=== PATIENT | male | born 1975 | race Caucasian/White ===

== ENCOUNTER 2019-09-02 23:57 | Emergency (ER) | payer BC, OTHER ==
--- OUTSIDE RECORDS SUMMARY | 2019-09-03 00:07 | XMS REPORT | Continuity of Care Document ---
Author Organization Unknown Address Unknown Phone Unavailable Allergies There is no data. Medications There is no data. Problems There is no data. Procedures There is no data. Results There is no data. Encounters ACCT No. Visit Date/Time Discharge Status Pt. Type Provider Facility Loc./Unit Complaint [id number] 09/03/2019 00:02:[address] Emergency RADHA CARTAGENA DO [facility] ER F O IN LEFT EYE
[2019-09-03] MEDS ORDERED: BSS 15 ML IR ONE (00:15)
[2019-09-03] MEDS ORDERED: FLUORESCEIN (FLUOR-I-STRIPS) 1 MG STRP OU ONE (00:15)
[2019-09-03] MEDS ORDERED: TETRACAINE 0.5% OPHTH SOLN 4 ML BTL (SINGLE DOSE ONLY) OU ONE (00:15)
--- NOTE | 2019-09-03 01:03 | ED EENT ---
History of Present Illness General Chief Complaint: Eye Problems Stated Complaint: F O IN LEFT EYE Source: patient History of Present Illness Date Seen by Provider: Sep 03, 2019 Time Seen by Provider: 00:04 Initial Comments PT ARRIVES VIA POV FROM HOME STATES HE THINKS HE HAS SOMETHING IN HIS LEFT EYE-IS NOT SURE WHAT IT MIGHT BE, BUT HAS BEEN WORKING OUTSIDE ALL DAY, WORKING ON [employer], ETC. STATES HIS EYE STARTED BOTHERING HIM AROUND 2000 TONIGHT NO VISION CHANGES DOES NOT WEAR GLASSES OR CONTACTS AND WAS NOT WEARING ANY PROTECTIVE EYE WEAR WHEN WORKING NO WELDING [employer]C EXPOSURE STATES HE HAS HAD THE SAME MULTIPLE TIMES--VARIOUS FOREIGN BODIES IN EYES --SEES DR. HUDSON WASHED HIS EYES WELL IN THE SHOWER, AND HAS BEEN IRRIGATING IT WITH SALINE AT HOME AND IT FEELS BETTER, BUT STILL HAS SENSATION OF FOREIGN BODY IN HIS EYE. NO DRAINAGE FROM THE EYE. LAST TETANUS VACCINATION 2017. Allergies and Home Medications Allergies Coded Allergies: No Known Drug Allergies (Unverified , 09/03/19) Patient Home Medication List Home Medication List Reviewed: Yes Review of Systems Review of Systems Constitutional: no symptoms reported Eyes: See HPI Past Vepdoqd-Ytclaz-Suhjqr Hx Past Med/Social Hx: Reviewed and Corrections made Patient Social History Alcohol Use: Rarely Uses Recreational Drug Use: No Smoking Status: Current Everyday Smoker (1/2 PPD) Type Used: Cigarettes (1/2 PPD) Recent Foreign Travel: No Contact w/Someone Who Travel: No Immunizations Up To Date Tetanus Booster (TDap): Less than 5yrs (2017) Past Medical History Surgeries: No Respiratory: No Cardiac: No Neurological: No Genitourinary: No Gastrointestinal: No Musculoskeletal: No Endocrine: No HEENT: No Cancer: No Psychosocial: No Integumentary: No Blood Disorders: No Physical Exam Height, Weight, BMI Height: '" Weight: lbs. oz. kg; BMI Method: General Appearance: WD/WN, no apparent distress Eyes: right eye normal inspection; left eye conjunctival inflammation, left eye corneal abrasion ([place] ABRASION/DYE UPTAKE TO LEFT CORNEA AT 2:00. NO FOREIGN BODY FOUND. ) Progress/Results/Core Measures Results/Orders My Orders Medications Given in ED Departure Impression Primary Impression: Left cornea abrasion Disposition: HOME, SELF-CARE Condition: Stable Departure-Patient Inst. Referrals: NO,LOCAL PHYSICIAN (PCP/Family) Primary Care Physician Patient Instructions: Corneal Abrasion (DC) Add. Discharge Instructions: USE EYE DROPS --2 DROPS TO EYE EVERY 4 HOURS TYLENOL AND MOTRIN FOR PAIN FOLLOW UP WITH DR. HUDSON OR RETURN TO ER TOMORROW FOR RECHECK All discharge instructions reviewed with patient and/or family. Voiced understanding. RADHA CARTAGENA DO Sep 03, 2019 01:03
[2019-09-03] MEDS ORDERED: GENTAMICIN 0.3% OPHTH SOLN 5 ML ONE (01:17)
[2019-09-03] MEDS ORDERED: RX-GENTAMICIN SULFATE 0.3% OP 5 ML BTL OS STA (01:17)
[2019-09-03] MEDS ORDERED: TOBRA/DEXAMETH (TOBRADEX) OPHTH SUSP 2.5 ML BTL OU SCH (04:00)
== END 2019-09-03 01:23 | disposition home or self-care (01) ==
LOC: ER 09-03 00:02
DX: S05.02XA Injury of conjunctiva and corneal abrasion without foreign body, left eye, initial encounter (principal); F17.210 Nicotine dependence, cigarettes, uncomplicated
CPT/HCPCS: 99282

== ENCOUNTER 2021-02-03 21:51 | Emergency (ER) | payer BC ==
[~2021-02-03] VITALS: Ht 198 cm; Wt 136.0 kg
[2021-02-03 22:18] VITALS: BP 145/95
[2021-02-03] MEDS ORDERED: OMEP20CA18 (22:27)
--- NOTE | 2021-02-03 22:39 | ED Upper Extremity ---
General Stated Complaint: STUCK BY VILLA IN R HAND History of Present Illness Date Seen by Provider: Feb 03, 2021 Time Seen by Provider: 22:25 Initial Comments Patient is a 45-year-old male presents ED with a possible foreign body in his right hand. Patient's concern for a thorn. Patient was hunting this afternoon and stuck his hand on a large thorn likely locust tree. Patient did not have immediate pain but started develop pain over the past hour. Pain with movement of the fingers. He reports mild localized redness and swelling. Up-to-date on his tetanus. Patient denies fever, nausea, vomiting, diarrhea, forearm pain Allergies and Home Medications Allergies Coded Allergies: No Known Drug Allergies (Unverified , 09/03/19) Patient Home Medication List Home Medication List Reviewed: Yes Amoxicillin/Potassium Clav (Augmentin 875-125 Tablet) 1 Each Tablet, 1 EACH PO BID Prescribed by: JIM LEIGH on 02/03/212242 Omeprazole (Omeprazole) 20 Mg Capsule., (Reported) Entered as Reported by: HAL RANDOLPH on 02/03/212226 Last Action: New Order Tramadol HCl (Tramadol HCl) 50 Mg Tablet, 50 MG PO Q4H PRN for PAIN-MODERATE (5- 7) Prescribed by: JIM LEIGH on 02/03/212242 Review of Systems Constitutional: No chills, No diaphoresis EENTM: No ear discharge, No eye pain Respiratory: No dyspnea on exertion, No short of breath, No wheezing Cardiovascular: No chest pain, No edema Gastrointestinal: No constipation, No diarrhea, No nausea, No vomiting Genitourinary: No decreased output, No discharge Musculoskeletal: No back pain, No joint pain; muscle pain, other (Normal active range of motion of the digits of the right hand. Neurovascular intact.) Skin: other (Puncture wound to right palmar hand. Dried blood possible foreign body. Mild localized redness swelling) Past Utpchdp-Wvfhrq-Hwglod Hx Immunizations Up To Date Tetanus Booster (TDap): Less than 5yrs Past Medical History Surgeries: No Respiratory: No Cardiac: No Neurological: No Genitourinary: No Gastrointestinal: No Musculoskeletal: No Endocrine: No HEENT: No Cancer: No Psychosocial: No Integumentary: No Blood Disorders: No Physical Exam Vital Signs Vital Signs - First Documented 12/5/21 22:18 Temp 36.5 Pulse 79 Resp 16 B/P (MAP) 145/95 (112) Pulse Ox 98 O2 Delivery Room Air Capillary Refill : Height, Weight, BMI Height: '" Weight: lbs. oz. kg; BMI Method: General Appearance: WD/WN, no apparent distress HEENT: PERRL/EOMI, normal ENT inspection, TMs normal, pharynx normal Neck: non-tender, full range of motion, supple, normal inspection Cardiovascular: regular rate, rhythm, no edema, no gallop Respiratory: chest non-tender, lungs clear, normal breath sounds Gastrointestinal: normal bowel sounds, non tender, soft Back: normal inspection, no CVA tenderness Shoulder: non-tender Hand: Right, swelling Neurologic/Tendon: normal sensation, normal motor functions, normal tendon functions Skin: other (Puncture wound to right palmar hand. Mild localized erythema.) Progress/Results/Core Measures Results/Orders My Orders Orders - LAMONTE CLAUDIO Amoxicillin/Clavulanate Tablet (Augmenti (02/03/21 22:40) Tramadol Tablet (Ultram Tablet) (02/03/21 22:40) Vital Signs/I&O 02/03/21 02/03/21 22:18 22:47 Temp 36.5 36.5 Pulse 79 Resp 16 B/P (MAP) 145/95 (112) Pulse Ox 98 O2 Delivery Room Air Departure Communication (Admissions) Patient believes he was stuck by a honey [place] tree. Possible foreign body right hand. Most likely dried blood. Made a small puncture with a 18-gauge needle without any foreign body. Normal active range of motion of the digits. Localized redness, swelling likely secondary to puncture wound. Discussed with patient that he would likely suffer from pain secondary to the wound. Recommend pain control. Recommend ice and anti-inflammatories. Will discharge with tramadol and Augmentin prophylactically. Up-to-date on his tetanus. If any worsening redness, swelling to return back to ED. No evidence of compartment syndrome. No evidence of flexor tenosynovitis. Impression Primary Impression: Puncture wound Disposition: 01 HOME, SELF-CARE Condition: Stable Departure-Patient Inst. Decision time for Depature: 22:42 Referrals: NO,LOCAL PHYSICIAN (PCP/Family) Primary Care Physician Patient Instructions: Wound Care ED Scripts Tramadol HCl (Tramadol HCl) 50 Mg Tablet 50 MG PO Q4H PRN for PAIN-MODERATE (5-7), #10 TAB Prov: LAMONTE CLAUDIO 02/03/21 Amoxicillin/Potassium Clav (Augmentin 875-125 Tablet) 1 Each Tablet 1 EACH PO BID for 7 Days, #14 TAB Prov: LAMONTE CLAUDIO 02/03/21 LAMONTE CLAUDIO Feb 03, 2021 22:39
[2021-02-03] MEDS ORDERED: AUGMENTIN 875 MG TAB (AMOXICILLIN/CLAVULANATE) PO STA (22:40)
[2021-02-03] MEDS ORDERED: AMOX-358 PO (22:43)
[2021-02-03] MEDS ORDERED: TRM50T PO (22:43)
== END 2021-02-03 22:48 | disposition home or self-care (01) ==
LOC: EDUNIT# 21:51 → ER 21:52
DX: S61.431A Puncture wound without foreign body of right hand, initial encounter (principal); W22.8XXA Striking against or struck by other objects, initial encounter
CPT/HCPCS: 99283